=== PATIENT | female | born 1990 | race Caucasian/White ===

== ENCOUNTER 2017-09-07 13:12 | Emergency (ER) | payer OTHER ==
--- NOTE | 2017-09-07 13:35 | ER Document Report ---
ED Medical Screen (RME) - General Chief Complaint: Abdominal Pain Stated Complaint: PELVIC/BACK PAIN, VAGINAL DISCHARGE Time Seen by Provider: 09/07/17 13:30 Notes: 27-year-old female patient reports LMP 08/23/2017, was on time but would paper machine back tender than usual. She reports onset 4 days ago of low back and pelvic area pain and discomfort which has been getting worse. This morning she developed a brownish red discharge which is unusual and not like anything she is seen before. She is not on control. I have greeted and performed a rapid initial assessment of this patient. A comprehensive ED assessment and evaluation of the patient, analysis of test results and completion of the medical decision making process will be conducted by additional ED providers. TRAVEL OUTSIDE OF THE [place] IN LAST 30 DAYS: No Past Medical History - Social History Chew tobacco use (# tins/day): No Frequency of alcohol use: None Drug Abuse: None Renal/ Medical History: Denies: Hx Peritoneal Dialysis Physical Exam - Vital signs Vitals: Temp Pulse Resp BP Pulse Ox 97.9 F 66 16 115/68 98 09/07/17 13:17 09/07/17 13:17 09/07/17 13:17 09/07/17 13:17 09/07/17 13:17 Course - Vital Signs Vital signs: Temp Pulse Resp BP Pulse Ox 97.9 F 66 16 115/68 98 09/07/17 13:17 09/07/17 13:17 09/07/17 13:17 09/07/17 13:17 09/07/17 13:17
[2017-09-07 14:12] LABS: APPEARANCE,URINE SLIGHTLY-CLOUDY; BILIRUBIN,URINE NEGATIVE (NEGATIVE); COLOR,URINE YELLOW; GLUCOSE, URINE NEGATIVE (NEGATIVE); KETONES,URINE NEGATIVE (NEGATIVE); LEUKOCYTE ESTERASE,URINE TRACE (NEGATIVE); NITRITE,URINE NEGATIVE (NEGATIVE); PROTEIN,URINE NEGATIVE (NEGATIVE); URINE SPECIFIC GRAVITY 1.014; UROBILINOGEN,URINE NEGATIVE mg/dL (<2.0)
[2017-09-07 14:13] LABS: ABSOLUTE LYMPHOCYTES (AUTO) 2.8 10^3/uL (0.5-4.7); ABSOLUTE MONOCYTES (AUTO) 0.6 10^3/uL (0.1-1.4); ABSOLUTE NEUT (AUTO) 5.4 10^3/uL (1.7-8.2); BASOPHILS % (AUTO) 0.4 % (0-2); EOSINOPHILS % (AUTO) 0.3 % (0-6); HEMOGLOBIN 12.9 g/dL (12.0-15.5); LYMPHOCYTES % (AUTO) 31.8 % (13-45); MEAN CORPUSCULAR HEMOGLOBIN 30.2 pg (27.0-33.4); MEAN CORPUSCULAR HGB CONC 33.1 g/dL (32.0-36.0); MEAN CORPUSCULAR VOLUME 91 fl (80-97); MONOCYTES % (AUTO) 6.4 % (3-13); PLATELET COUNT 266 10^3/uL (150-450); RED BLOOD COUNT 4.27 10^6/uL (3.72-5.28); RED CELL DISTRIBUTION WIDTH 13.7 % (11.5-14.0); SEGMENTED NEUTROPHILS % (AUTO) 61.1 % (42-78); TOTAL CELLS COUNTED % (AUTO) 100 %; WHITE BLOOD COUNT 8.9 10^3/uL (4.0-10.5)
--- NOTE | 2017-09-07 14:24 | ER Document Report ---
ED General - General Chief Complaint: Abdominal Pain Stated Complaint: PELVIC/BACK PAIN, VAGINAL DISCHARGE Time Seen by Provider: 09/07/17 13:30 Mode of Arrival: Ambulatory Information source: Patient Notes: 27-year-old female with a history of anxiety presents with complaint of abdominal pain that started 5 days prior to arrival. Pain is located in the lower abdomen, described as cramping, intermittent and not relieved with Tylenol or Motrin. Patient has had associated nausea without vomiting. Her last menstrual period was August 23, 2017. She states that she has had some brown bloody discharge over the last few days. She is currently sexually active with one partner and does not use control. She denies sick contacts, new medications, recent antibiotic use. TRAVEL OUTSIDE OF THE [place] IN LAST 30 DAYS: No - HPI Onset: Last week Onset/Duration: Gradual, Intermittent Quality of pain: Cramping Associated symptoms: Nausea. denies: Chest pain, Diarrhea, Fever, Vomiting, Shortness of breath, Weakness Exacerbated by: Denies Relieved by: Denies Similar symptoms previously: No Recently seen / treated by doctor: No Past Medical History - General Information source: Patient - Social History Smoking Status: Never Smoker Chew tobacco use (# tins/day): No Frequency of alcohol use: None Drug Abuse: None Lives with: Spouse/Significant other Family History: Reviewed & Not Pertinent Patient has suicidal ideation: No Patient has homicidal ideation: No - Medical History Medical History: Other - Anxiety Renal/ Medical History: Denies: Hx Peritoneal Dialysis Review of Systems - Review of Systems Notes: Patient denies fever, chills, vomiting, headache, ear pain, sore throat, cough, chest pain, shortness of breath, back pain, dysuria, hematuria, rash, SI/HI. Physical Exam - Vital signs Vitals: Temp Pulse Resp BP Pulse Ox 97.9 F 66 16 115/68 98 09/07/17 13:17 09/07/17 13:17 09/07/17 13:17 09/07/17 13:17 09/07/17 13:17 Interpretation: Normal. No: Hypertensive, Febrile - Notes Notes: PHYSICAL EXAMINATION: GENERAL: Well-appearing, well-nourished and in no acute distress. HEAD: Atraumatic, normocephalic. EYES: Pupils equal round and reactive to light, extraocular movements intact, conjunctiva are normal. ENT: Nares patent, oropharynx clear without exudates. Moist mucous membranes. NECK: Normal range of motion, supple without lymphadenopathy LUNGS: Breath sounds clear to auscultation bilaterally and equal. No wheezes rales or rhonchi. HEART: Regular rate and rhythm without murmurs ABDOMEN: Soft, nontender, nondistended abdomen. No guarding, no rebound. No masses appreciated. Female : Thin white discharge, no foul odor, no vaginal lacerations, no external lesions. There is a circular yellow 0.25 cm area on the cervix that was not tender with manipulation. No CMT. Musculoskeletal: Normal range of motion, no pitting or edema. No cyanosis. NEUROLOGICAL: Cranial nerves grossly intact. Normal speech, normal gait. Normal sensory, motor exams PSYCH: Normal mood, normal affect. SKIN: Warm, Dry, normal turgor, no rashes or lesions noted. Course - Re-evaluation Re-evalutation: Laboratory 09/07/17 09/07/17 09/07/17 13:40 13:40 13:40 WBC 8.9 RBC 4.27 Hgb 12.9 Hct 39.0 MCV 91 MCH 30.2 MCHC 33.1 RDW 13.7 Plt Count 266 Seg Neutrophils % 61.1 Lymphocytes % 31.8 Monocytes % 6.4 Eosinophils % 0.3 Basophils % 0.4 Absolute Neutrophils 5.4 Absolute Lymphocytes 2.8 Absolute Monocytes 0.6 Absolute Eosinophils 0.0 Absolute Basophils 0.0 Sodium 142.3 Potassium 4.1 Chloride 103 Carbon Dioxide 26 Anion Gap 13 BUN 9 Creatinine 0.68 Est GFR ( Amer) > 60 Est GFR (Non-Af Amer) > 60 Glucose 83 Calcium 9.3 Total Bilirubin < 0.1 L Direct Bilirubin Neonat Total Bilirubin Not Reportable Neonat Direct Bilirubin Not Reportable Neonat Indirect Bili Not Reportable AST 22 ALT 25 Alkaline Phosphatase 57 Total Protein 7.5 Albumin 4.1 Serum HCG, Qual NEGATIVE Urine Color Urine Appearance Urine pH Ur Specific [place] Urine Protein Urine Glucose (UA) Urine Ketones Urine Blood Urine Nitrite Urine Bilirubin Urine Urobilinogen Ur Leukocyte Esterase Urine WBC (Auto) Urine RBC (Auto) Squamous Epi Cells Auto Urine Mucus (Auto) Urine Ascorbic Acid Bacteria (Wet Prep) Trichomonas (Wet Prep) Vaginal WBC Vaginal RBC Vaginal Yeast 05/04/18 05/04/18 13:40 14:56 WBC RBC Hgb Hct MCV MCH MCHC RDW Plt Count Seg Neutrophils % Lymphocytes % Monocytes % Eosinophils % Basophils % Absolute Neutrophils Absolute Lymphocytes Absolute Monocytes Absolute Eosinophils Absolute Basophils Sodium Potassium Chloride Carbon Dioxide Anion Gap BUN Creatinine Est GFR ( Amer) Est GFR (Non-Af Amer) Glucose Calcium Total Bilirubin Direct Bilirubin Neonat Total Bilirubin Neonat Direct Bilirubin Neonat Indirect Bili AST ALT Alkaline Phosphatase Total Protein Albumin Serum HCG, Qual Urine Color YELLOW Urine Appearance SLIGHTLY-CLOUDY Urine pH 5.0 Ur Specific [place] 1.014 Urine Protein NEGATIVE Urine Glucose (UA) NEGATIVE Urine Ketones NEGATIVE Urine Blood SMALL H Urine Nitrite NEGATIVE Urine Bilirubin NEGATIVE Urine Urobilinogen NEGATIVE Ur Leukocyte Esterase TRACE H Urine WBC (Auto) 4 Urine RBC (Auto) 1 Squamous Epi Cells Auto 5 Urine Mucus (Auto) RARE Urine Ascorbic Acid NEGATIVE Bacteria (Wet Prep) 4+ BACTERIA SEEN Trichomonas (Wet Prep) NO TRICHOMONAS SEEN Vaginal WBC 2+ WBCS SEEN Vaginal RBC NO RBCS SEEN Vaginal Yeast NO YEAST SEEN 09/07/17 14:24 27-year-old female with a history of anxiety presents with complaint of abdominal pain that started 5 days prior to arrival. Pain is located in the lower abdomen, described as cramping, intermittent and not relieved with Tylenol or Motrin. Patient has had associated nausea without vomiting. Her last menstrual period was August 23, 2017. She states that she has had some brown bloody discharge over the last few days. She is currently sexually active with one partner and does not use control. She denies sick contacts, new medications, recent antibiotic use. Upon arrival vitals reviewed and within normal limits. Patient does not appear toxic or dehydrated. She is in no acute distress. Exam and laboratory findings consistent with bacterial vaginosis. She will be prescribed Flagyl for 1 week. 09/07/17 15:58 09/07/17 21:07 - Vital Signs Vital signs: Temp Pulse Resp BP Pulse Ox 98.4 F 55 L 18 108/67 100 09/07/17 16:26 09/07/17 16:26 09/07/17 16:26 09/07/17 16:26 09/07/17 16:26 - Laboratory Result Diagrams: 09/07/17 13:40 09/07/17 13:40 Laboratory results interpreted by me: 09/07/17 09/07/17 13:40 13:40 Total Bilirubin < 0.1 L Urine Blood SMALL H Ur Leukocyte Esterase TRACE H Discharge - Discharge Clinical Impression: Bacterial vaginosis Condition: Good Disposition: HOME, SELF-CARE Instructions: Vaginosis, Bacterial ([facility]) Additional Instructions: Follow up with your physician tomorrow for further care or return to the ED IMMEDIATELY if symptoms worsen or new concerns occur. If you cannot afford to follow up with your primary care physician a list of low cost clinics have been provided at the end of your discharge papers as well. Prescriptions: Metronidazole [Flagyl 500 mg Tablet] 500 mg PO BID #14 tablet
[2017-09-07 14:29] LABS: ALANINE AMINOTRANSFERASE 25 U/L (9-52); ALBUMIN 4.1 g/dL (3.5-5.0); ALKALINE PHOSPHATASE 57 U/L (38-126); ANION GAP 13 (5-19); ASPARTATE AMINO TRANSFERASE 22 U/L (14-36); BLOOD UREA NITROGEN 9 mg/dL (7-20); CALCIUM 9.3 mg/dL (8.4-10.2); CARBON DIOXIDE 26 mmol/L (22-30); CHLORIDE 103 mmol/L (98-107); GLUCOSE 83 mg/dL (75-110); POTASSIUM 4.1 mmol/L (3.6-5.0); SODIUM 142.3 mmol/L (137-145); TOTAL PROTEIN 7.5 g/dL (6.3-8.2)
[2017-09-07 14:31] LABS: BILIRUBIN,TOTAL < 0.1 mg/dL (0.2-1.3)
[2017-09-07 15:14] LABS: BACTERIA (WET MOUNT) 4+ BACTERIA SEEN; RBCS (WET MOUNT) NO RBCS SEEN; T.VAGINALIS (WET MOUNT) NO TRICHOMONAS SEEN; WBCS (WET MOUNT) 2+ WBCS SEEN; YEAST (WET MOUNT) NO YEAST SEEN
[2017-09-07] MEDS ORDERED: METRONIDAZOLE 500 MG TABLET PO ONE (15:44)
[2017-09-07] MEDS ORDERED: ONDANSETRON 4 MG TAB.RAPDIS PO ONE (15:44)
[2017-09-07 16:29] VITALS: BP 108/67
[2017-09-07 16:44] LABS: CHLAM PCR NOT DETECTED (NOT DETECT); GON PCR NOT DETECTED (NOT DETECT)
== END 2017-09-07 16:47 | disposition home or self-care (01) ==
LOC: ER 13:12
DX: N76.0 Acute vaginitis (principal); B96.89 Other specified bacterial agents as the cause of diseases classified elsewhere; R10.30 Lower abdominal pain, unspecified; R11.0 Nausea
CPT/HCPCS: 99283; 36415; 87210; 84703; 85025; 80053; 81001; 87491; 87591; S0119

== ENCOUNTER 2018-07-20 21:36 | Inpatient (IN) | payer MEDICAID ==
[2018-07-20] MEDS ORDERED: RINGERS SOLUTION,LACTATED 1,000 ML IV PRN ×2 (21:57→22:48)
[2018-07-20] MEDS ORDERED: MISOPROSTOL 0.2 MG TABLET ONE (21:59)
[2018-07-20] MEDS ORDERED: LIDOCAINE 1% INJ-PF (10 MG/ML) 30 ML SDV ONE (21:59)
[2018-07-20] MEDS ORDERED: OXYTOCIN/NORMAL SALINE 0 UNIT/0 ML RTUINJ ONE (21:59)
[2018-07-20 22:11] LABS: APPEARANCE,URINE TURBID; BILIRUBIN,URINE NEGATIVE (NEGATIVE); GLUCOSE, URINE NEGATIVE (NEGATIVE); KETONES,URINE NEGATIVE (NEGATIVE); LEUKOCYTE ESTERASE,URINE LARGE (NEGATIVE); NITRITE,URINE NEGATIVE (NEGATIVE); PROTEIN,URINE 30 mg/dL (NEGATIVE); URINE SPECIFIC GRAVITY 1.023
[2018-07-20 22:16] LABS: COLOR,URINE YELLOW
[2018-07-20] MEDS ORDERED: OXYTOCIN 10 UNIT/ML VIAL ONE (22:18)
[2018-07-20 22:20] LABS: ABSOLUTE LYMPHOCYTES (AUTO) 2.7 10^3/uL (0.5-4.7); ABSOLUTE MONOCYTES (AUTO) 1.1 10^3/uL (0.1-1.4); ABSOLUTE NEUT (AUTO) 7.2 10^3/uL (1.7-8.2); BASOPHILS % (AUTO) 0.3 % (0-2); EOSINOPHILS % (AUTO) 0.3 % (0-6); HEMATOCRIT 36.4 % (36.0-47.0); HEMOGLOBIN 12.2 g/dL (12.0-15.5); MEAN CORPUSCULAR HEMOGLOBIN 31.1 pg (27.0-33.4); MEAN CORPUSCULAR HGB CONC 33.6 g/dL (32.0-36.0); MEAN CORPUSCULAR VOLUME 92 fl (80-97); MONOCYTES % (AUTO) 10.3 % (3-13); PLATELET COUNT 192 10^3/uL (150-450); RED BLOOD COUNT 3.93 10^6/uL (3.72-5.28); RED CELL DISTRIBUTION WIDTH 13.2 % (11.5-14.0); SEGMENTED NEUTROPHILS % (AUTO) 65.1 % (42-78); TOTAL CELLS COUNTED % (AUTO) 100 %; WHITE BLOOD COUNT 11.1 10^3/uL (4.0-10.5)
[2018-07-20 22:25] LABS: URINE AMPHETAMINES SCREEN NEGATIVE; URINE BARBITURATES SCREEN NEGATIVE; URINE BENZODIAZEPINES SCREEN NEGATIVE; URINE COCAINE SCREEN NEGATIVE; URINE MARIJUANA (THC) SCREEN NEGATIVE; URINE METHADONE SCREEN NEGATIVE; URINE PHENCYCLIDINE SCREEN NEGATIVE
[2018-07-20] MEDS ORDERED: PROMETHAZINE HCL 25 MG SUPP.RECT PR PRN (22:47)
[2018-07-20] MEDS ORDERED: PROMETHAZINE HCL 25 MG TABLET PO PRN (22:47)
[2018-07-20] MEDS ORDERED: DIBUCAINE 1% OINTMENT 56 GM TP PRN (22:47)
[2018-07-20] MEDS ORDERED: NA PHOS,M-B/NA PHOS,DI-BA (ADULT) 133 ML ENEMA PR PRN (22:47)
[2018-07-20] MEDS ORDERED: PROMETHAZINE HCL INJ 25 MG/1 ML VIAL IV PRN (22:47)
[2018-07-20] MEDS ORDERED: MAGNESIUM HYDROXIDE SUSP 30 ML UDCUP PO PRN (22:47)
[2018-07-20] MEDS ORDERED: BENZOCAINE/MENTHOL AEROSOL SPRAY 56 ML TOP PRN (22:47)
[2018-07-20] MEDS ORDERED: PSEUDOEPHEDRINE HCL 30 MG TABLET PO PRN (22:47)
[2018-07-20] MEDS ORDERED: DIPH/PERTUSS(ACELL)/TETANUS VAC/PF 0.5 ML SYR (>=10YO) IM PRN (22:47)
[2018-07-20] MEDS ORDERED: MEASLES,MUMPS&RUBELLA VACC/PF 0.5 ML VIAL SUBCUT PRN (22:47)
[2018-07-20] MEDS ORDERED: ACETAMINOPHEN WITH CODEINE #3 TABLET PO PRN (22:47)
[2018-07-20] MEDS ORDERED: ZOLPIDEM TARTRATE 5 MG TABLET PO PRN (22:47)
[2018-07-20] MEDS ORDERED: OXYTOCIN/NORMAL SALINE 20 UNIT/1,000 ML RTUINJ IV PRN ×2 (22:47→22:48)
[2018-07-20] MEDS ORDERED: GLYCERIN/WITCH HAZEL LEAF 1 EACH MED..PAD TP PRN (22:47)
[2018-07-20] MEDS ORDERED: ACETAMINOPHEN 650 MG SUPP.RECT PR PRN (22:47)
[2018-07-20] MEDS ORDERED: DIPHENHYDRAMINE HCL 25 MG CAPSULE PO PRN (22:47)
[2018-07-20] MEDS ORDERED: RINGERS SOLUTION,LACTATED 300 ML IV ONE (22:48)
--- NOTE | 2018-07-20 23:04 | Admission Physical ---
Datetime Report Generated by CPN: 07/20/2018 23:04 CURRENT ADMISSION Chief Complaint: Uterine Contractions Indication for Induction: Not Applicable Admit Impression : Term, Intrauterine ; Active Labor Admit Plan: Admit to Unit; Initiate Labor Protocol ALLERGIES Medication Allergies: Yes Medication Allergies: Cefaclor (07/20/2018) Latex: Latex Allergies OBSTETRICAL HISTORY EDC: 07/29/2018 00:00 : 4 Para: 3 Term: 3 : 0 SAB: 0 IAB: 0 Livin Gestational Diabetes: No Rh Sensitization: No Incompetent Cervix: No MORGAN: No Infertility: No ART Treatment: No Uterine Anomaly: No IUGR: No Hx Previous C/S: No Macrosomia: No Hx Loss/Stillborn: No PIH: No Hx : No Placenta Previa/Abruption: No Depression/PP Depression: No PTL/PROM: No Post Hemorrhage: No Current Procedures: Ultrasound Obstetrical History Comments: G1 - 2008 @ 40 weeks; Baby Girl 7lbs 15oz, natural G2 - 2010 @ 40 weeks; Baby Girl 6lbs 14oz, natural, GBS+ G3 - 2013 @ 40 weeks; Baby Boy 7lbs 11oz, natural, cervical tear G4 - Current SEE RECORDS Alcohol: No Marijuana : No Cocaine: No Other Illicit Drugs: No Cigarettes: Never Smoker. 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 Heart Disease: No Hosp/Surgery: Yes Autoimmune Disorder: No Anesthetic Complications: No Kidney Disease: No Abnormal Pap Smear: No Neuro/Epilepsy: No Psychiatric Disorders: No Other Medical Diseases: No Hepatitis/Liver Disease: No Significant Family History: No Varicosities/Phlebitis: No Trauma/Violence : No Thyroid Dysfunction: No Medical History Comments: Previous hospitalization - tonsillectomy (1995), childbirth x's 3 INFECTIOUS HISTORY Gonorrhea: No Genital Herpes: No Chlamydia: No Tuberculosis: No Syphilis: No Hepatitis: No HIV/AIDS Exposure: No Rash or Viral Illness: No HPV: No PHYSICAL EXAM General: Normal HEENT: Normal Neurologic: Normal Thyroid: Deferred Heart: Normal Lungs: Normal Breast: Normal Back: Deferred Abdomen: Normal Genitourinary Exam: Normal Extremities: Normal DTRs: Normal Pelvic Type: Adequate Vital Signs: Reviewed; Within Normal Limits VAGINAL EXAM Dilatation: 9 Effacement: 90 Station: 0 MEMBRANES Membranes: Ruptured Amniotic Fluid Color: Meconium, Light FETUS A EGA: 38.5 Monitoring: External US FHR- Baseline: 150 Variability: Moderate 6-25bpm Accelerations: 10X10 Decelerations: None Estimated Weight (gm): 3800 Presentation: Vertex Admit Comment: 28yo @ 38w5d presents to L_D with complaints of painful uterine contractions. Patient reports good fm, no vb, no lof. has been uncomplicated other than elevated 1hr glucola and normal 3hr diagnostic test. PLANS FOR LABOR AND DELIVERY Labor and Delivery: None Pain Management: Epidural Feeding Preference: Formula Benefit of Breast Feed Discussed: Yes Circumcision: Yes INFORMED CONSENT Signature: with User ID: [email or web address]
[2018-07-20] MEDS ORDERED: IBUPROFEN 800 MG TABLET ONE (23:13)
--- NOTE | 2018-07-21 00:07 | Delivery Summary ---
Del Sum A-C Datetime Report Generated by CPN: 07/21/2018 00:07 DELIVERY PERSONNEL DELIVERY PERSONNEL: [id number] Delivery Doctor:: Narcisa Gray MD Labor and Delivery Nurse:: Paige Steiner RNcotton bag sewer Nurse:: Thuy Puckett RN Nursery Nurse:: Ryanne Diop RN Cna Hha/CABLE ENGINEER OUTSIDE PLANT: Mandy Kennedy, ST MATERNAL INFORMATION Delivery Anesthesia: None Medications After Delivery: Pitocin 10 Units IM; Cytotec 1000mcg Per Rectum/Vagina Maternal Complications: Precipitous Labor (<3hrs) LABOR SUMMARY EDC: 07/29/2018 00:00 No. Babies in Womb: 1 Attempted: No Labor Anesthesia: None LABOR INFORMATION Reason for Induction: Not Applicable Onset of Labor: 07/20/2018 19:00 Complete Dilatation: 07/20/2018 22:27 Oxytocin: N/A Group B Beta Strep: Negative Steroids Given: None Reason Steroids Not Administered: Not Applicable MEMBRANES Membranes Rupture Method: Spontaneous Rupture of Membranes: 07/20/2018 22:15 Length of Rupture (hr): 0.20 Amniotic Fluid Color: Moderate Meconium Amniotic Fluid Amount: Moderate Amniotic Fluid Odor: Normal STAGES OF LABOR Stage 1 hr: 3 Stage 1 min: 27 Stage 2 hr: 0 Stage 2 min: 0 Stage 3 hr: 0 Stage 3 min: 4 Total Time in Labor hr: 3 Total Time in Labor min: 31 VAGINAL DELIVERY Episiotomy: None Laceration #1: None; Perineal Laceration Extension #1: First Degree Laceration Repair: No Laceration Repair Note: Small first degree that was hemostatic and patient was uncomfortable and therefore not repaired as patient had no pain meds. Sponge Count Correct: N/A Sharps Count Correct: N/A CSECTION DELIVERY Primary Indication: N/A Secondary Indication: N/A CSection Incidence: N/A Labor: N/A Elective: Failed CSection Incision: N/A BABY A INFORMATION Delivery Date/Time: 07/20/2018 22:27 Method of Delivery: Vaginal Born in Route : No : N/A Forceps: N/A Vacuum Extraction: N/A Shoulder Dystocia : No PRESENTATION/POSITION BABY A Presentation: Cephalic Cephalic Presentation: Vertex Vertex Position: Right Occipital Anterior Breech Presentation: N/A PLACENTA INFORMATION BABY A Placenta Delivery Time : 07/20/2018 22:31 Placenta Method of Delivery: Spontaneous Placenta Status: Delivered SCORES BABY A Heart Rate 1 min: >100 bpm Resp Effort 1 min: Good Cry Reflex Irritability 1 min: Cough or Sneeze or Pulls Away Muscle Tone 1 min: Active Motion Color 1 min: Blue/Pale Resuscitation Effort 1 min: Tactile Stimulation SCORE 1 MIN: 8 Heart Rate 5 min: >100 bpm Resp Effort 5 min: Good Cry Reflex Irritability 5 min: Cough or Sneeze or Pulls Away Muscle Tone 5 min: Active Motion Color 5 min: Body [place], Extremities Blue Resuscitation Effort 5 min: N/A SCORE 5 MIN: 9 INFORMATION BABY A Gestational Age at Delivery: 38.5 Gestational Status: Early Term- 37- 38.6 Weeks Outcome : Liveborn Condition : Stable Sex: Male IDENTIFICATION BABY A Verification Date/Time: 07/20/2018 22:38 ID Band Number: [id number] Mother's Name Verified: Yes Infant RN Verifying : Abbie IbarraHugo RN Additional Verifying Personnel: Ring, B. RN WEIGHT/LENGTH BABY A Birthweight (gm): 3554 Weight (lb): 7 Infant Weight (oz): 13 Length (in): 20.47 Infant Length (cm): 51.99 CORD INFORMATION BABY A No. Cord Vessels: 3 Nuchal Cord : N/A Cord Blood Taken: Yes-For Storage (Mom's Blood type +) Suction: Mouth; Nose ASSESSMENT BABY A Complications: Meconium Physical Findings- Other: See full nursery docent coordinator Hydroelectric Station Operator Chief/ALS Called : No Care By: JocelynHugo Jadon RN Transferred To: Remains with Mother BABY B INFORMATION : N/A SIGNATURES Signature: Electronically signed by MD Haley CarltonGR[facility]) on 07/20/2018 at 23:09 with User ID: [email or web address]
--- NOTE | 2018-07-21 00:14 | Warning Signs in Babies ---
VOD Warning Signs Datetime Report Generated by N: 07/21/2018 00:14 VOD#608 -Warning Signs in Babies: Viewed with Parent(s)/Family (07/21/2018 00:00:Paige Steiner RN)
[2018-07-21] MEDS: IBUPROFEN 800 MG TABLET PO SCH ×3 (05:53→21:32)
[2018-07-21 08:20] LABS: HEMATOCRIT 32.8 % (36.0-47.0); MEAN CORPUSCULAR HEMOGLOBIN 31.3 pg (27.0-33.4); MEAN CORPUSCULAR HGB CONC 33.4 g/dL (32.0-36.0); MEAN CORPUSCULAR VOLUME 94 fl (80-97); PLATELET COUNT 157 10^3/uL (150-450); RED CELL DISTRIBUTION WIDTH 13.4 % (11.5-14.0); WHITE BLOOD COUNT 11.5 10^3/uL (4.0-10.5)
[2018-07-21] MEDS: ACETAMINOPHEN WITH CODEINE #3 TABLET PO PRN ×2 (08:37→20:28)
--- NOTE | 2018-07-21 10:34 | PDOC PROGRESS REPORT ---
Subjective-OB Progress Note for:: 07/21/18 Subjective: reports bleeding slowing, pain controlled with current meds, denies needs Physical Exam (OB) Vital Signs: Temp Pulse Resp BP Pulse Ox 98.8 F 74 18 133/77 H 95 07/21/18 00:37 07/21/18 00:37 07/21/18 00:37 07/21/18 00:37 07/21/18 00:37 Intake & Output 07/20/18 07/21/18 07/22/18 06:59 06:59 06:59 Weight 87.3 kg - Abdomen Description: Soft Hernia Present: No Fundal Description: Firm, Midline Fundal Height: u/u - u/2 - Abdominal Distension: No distension Tenderness: Nontender - Extremities Lower extremities: Huy's sign - neg Calf: Normal, Nontender Objective-Diagnostic Laboratory: 07/21/18 07:40 07/20/18 07/20/18 07/20/18 21:45 22:11 22:11 WBC 11.1 H RBC 3.93 Hgb 12.2 Hct 36.4 MCV 92 MCH 31.1 MCHC 33.6 RDW 13.2 Plt Count 192 Seg Neutrophils % 65.1 Lymphocytes % 24.0 Monocytes % 10.3 Eosinophils % 0.3 Basophils % 0.3 Absolute Neutrophils 7.2 Absolute Lymphocytes 2.7 Absolute Monocytes 1.1 Absolute Eosinophils 0.0 Absolute Basophils 0.0 Urine Color YELLOW Urine Appearance TURBID Urine pH 5.0 Ur Specific [place] 1.023 Urine Protein 30 H Urine Glucose (UA) NEGATIVE Urine Ketones NEGATIVE Urine Blood LARGE H Urine Nitrite NEGATIVE Ur Leukocyte Esterase LARGE H Blood Type A POSITIVE Antibody Screen NEGATIVE 07/21/18 07:40 WBC 11.5 H RBC 3.50 L Hgb 11.0 L Hct 32.8 L MCV 94 MCH 31.3 MCHC 33.4 RDW 13.4 Plt Count 157 Seg Neutrophils % Lymphocytes % Monocytes % Eosinophils % Basophils % Absolute Neutrophils Absolute Lymphocytes Absolute Monocytes Absolute Eosinophils Absolute Basophils Urine Color Urine Appearance Urine pH Ur Specific [place] Urine Protein Urine Glucose (UA) Urine Ketones Urine Blood Urine Nitrite Ur Leukocyte Esterase Blood Type Antibody Screen Assessment and Plan(PN) - Assessment and Plan (1) Normal vaginal delivery Is this a current diagnosis for this admission?: Yes - Time Spent with Patient Time with patient: Less than 15 minutes Medications reviewed and adjusted accordingly: Yes - Disposition Anticipated Discharge: Home Within: within 24 hours
[2018-07-21] MEDS: PRENATAL VITAMIN W DHA CAPSULE PO SCH (11:01)
[2018-07-21] MEDS: FERROUS SULFATE 325 MG TABLET PO SCH ×2 (11:01→18:08)
[2018-07-21] MEDS: DOCUSATE SODIUM 100 MG CAPSULE PO SCH ×2 (11:01→18:08)
[2018-07-21] MEDS: FAMOTIDINE 20 MG TABLET PO SCH ×2 (11:01→21:32)
[2018-07-21] MEDS: SENNOSIDES/DOCUSATE 8.6-50 MG 1 EACH TABLET PO SCH (11:01)
[2018-07-22] MEDS: IBUPROFEN 800 MG TABLET PO SCH ×2 (06:00→14:31)
[2018-07-22 08:12] VITALS: BP 110/65
[2018-07-22] MEDS: DOCUSATE SODIUM 100 MG CAPSULE PO SCH (09:10)
[2018-07-22] MEDS: FERROUS SULFATE 325 MG TABLET PO SCH (09:10)
[2018-07-22] MEDS: FAMOTIDINE 20 MG TABLET PO SCH (09:10)
[2018-07-22] MEDS: PRENATAL VITAMIN W DHA CAPSULE PO SCH (09:10)
[2018-07-22] MEDS: SENNOSIDES/DOCUSATE 8.6-50 MG 1 EACH TABLET PO SCH (09:10)
--- NOTE | 2018-07-22 10:00 | PDOC DISCHARGE SUMMARY ---
Final Diagnosis Discharge Date: 07/22/18 - Final Diagnosis (1) Normal vaginal delivery Is this a current diagnosis for this admission?: Yes Discharge Data - Discharge Medication Home Medications: Citalopram Hydrobromide [Celexa] 60 mg PO DAILY 09/07/17 Pnv No.95/Ferrous Fum/Folic AC [ Multivitamin Tablet] 1 tab PO DAILY 07/20/18 Reason(s) for Admission: Onset of Labor Procedures: NST Intrapartum Procedure(s): Spontaneous Vaginal Delivery Complication(s): Laceration-Perineal Laceration-Degree: 1st - Diagnosis Test Laboratory: Temp Pulse Resp BP Pulse Ox 97.3 F 64 16 110/65 99 07/22/18 07:48 07/22/18 07:48 07/22/18 07:48 07/22/18 07:48 07/22/18 07:48 07/20/18 07/20/18 07/21/18 21:45 22:11 07:40 RBC 3.93 3.50 L Hgb 12.2 11.0 L Hct 36.4 32.8 L Urine Opiates Screen NEGATIVE - Discharge information/Instructions Discharge Activity: Activity As Tolerated, Pelvic Rest Discharge Diet: Regular Disposition: HOME, SELF-CARE Follow [facility] with: [facility] in: 4, Weeks
== END 2018-07-22 14:50 | disposition home or self-care (01) | DRG 807 ==
LOC: LC 21:36 → LR 22:00 → 2S 07-21 00:30
PROVIDERS: ADMIT Obstetrics & Gynecology; ATTEND Obstetrics & Gynecology
PROC: 10E0XZZ Delivery of Products of Conception, External Approach (ICD-10-PCS; principal; 2018-07-20)
PROC: 4A1HXCZ Monitoring of Products of Conception, Cardiac Rate, External Approach (ICD-10-PCS; 2018-07-20)
DX: O77.0 Labor and delivery complicated by meconium in amniotic fluid (principal); Z37.0 Single live birth; O62.3 Precipitate labor; O70.0 First degree perineal laceration during delivery; Z3A.38 38 weeks gestation of pregnancy
CPT/HCPCS: 36415; 80307; 81005; 85025; 85027; 86592; 86850; 86900; 86901; J2590; J3490